=== PATIENT | female | born 1975 | race Caucasian/White ===

== ENCOUNTER → 2018-12-03 | Outpatient (REF) | payer OTHER ==
[2018-12-03 12:25] LABS: BASO % 0.6 % (0.0-1.0); EOS # 0.1 10^3/uL (0.0-0.50); EOS % 2.1 % (0.0-3.0); HEMATOCRIT 37.9 % (36.0-47.0); HEMOGLOBIN 12.8 g/dl (12.0-15.5); LYMPH # 2.1 10^3/uL (1.5-4.5); LYMPH % 39.1 % (24.0-44.0); MEAN CORPUSCULAR HEMOGLOBIN 30.4 pg (27.0-33.0); MEAN CORPUSCULAR HGB CONC 33.8 g/dl (32.0-36.5); MONO # 0.5 10^3/uL (0.0-0.8); MONO % 8.4 % (0.0-5.0); NEUTROPHILS # 2.6 10^3/uL (1.8-7.7); NEUTROPHILS % 49.4 % (36.0-66.0); PLATELET COUNT, AUTOMATED 269 10^3/uL (150-450); RED BLOOD COUNT 4.21 10^6/uL (4.00-5.40); WHITE BLOOD COUNT 5.3 10^3/uL (4.0-10.0)
[2018-12-03 12:38] LABS: ALBUMIN 3.9 GM/DL (3.2-5.2); ALT/SGPT 22 U/L (12-78); BILIRUBIN,TOTAL 0.4 MG/DL (0.2-1.0); BLOOD UREA NITROGEN 7 MG/DL (7-18); CALCIUM LEVEL 9.3 MG/DL (8.5-10.1); CARBON DIOXIDE LEVEL 31 MEQ/L (21-32); CHLORIDE LEVEL 104 MEQ/L (98-107); CHOLESTEROL LEVEL 224 MG/DL (<200); CHOLESTEROL RISK RATIO 3.446 (<5); CREATININE FOR GFR 0.66 MG/DL (0.55-1.30); FREE T4 0.93 NG/DL (0.76-1.46); GLOMERULAR FILTRATION RATE > 60.0 (>58); GLUCOSE, FASTING 69 MG/DL (70-100); HDL CHOLESTEROL 65 MG/DL (>40); LDL CHOLESTEROL 143 MG/DL (<100); NON-HDL-C 159 MG/DL; SODIUM LEVEL 140 MEQ/L (136-145); TOTAL PROTEIN 7.3 GM/DL (6.4-8.2); TRIGLYCERIDES LEVEL 80 MG/DL (<150)
[2018-12-03 12:41] LABS: TOTAL 25(OH) VITAMIN D 24.6 NG/ML (30.0-100.0)
[2018-12-03 13:22] LABS: HEMOGLOBIN A1c 5.7 %
== END ==
LOC: M SFHCPLAZ 10:41
PROVIDERS: ATTEND Nurse Practitioner Family
DX: Z13.228 Encounter for screening for other metabolic disorders (principal); E55.9 Vitamin D deficiency, unspecified

== ENCOUNTER → 2018-12-09 | Outpatient (CLI) | payer OTHER ==
--- NOTE | 2018-12-09 12:43 | REPMRS ---
Patient History The patient states she has not had a clinical breast exam in over a year. No known family history of cancer. 3D TOMOSYNTHESIS WAS PERFORMED. The [facility] lifetime risk for breast cancer is 10.0%. Digital Woman Screen Mammo: December 09, 2018 - Exam #: [id number] Bilateral CC and MLO view(s) were taken. Technologist: Nancy Sawyer, Technologist FINDINGS: The breast tissue is extremely dense which could obscure a lesion on mammography. There is no evidence of cancer on this mammogram. No significant changes when compared with prior studies. Assessment: BI-RADS/ACR category 2 mammogram. Benign Findings. Recommendation Routine screening mammogram of both breasts in 1 year (for women over age 40). This mammogram was interpreted with the aid of an FDA-approved computer-aided dectection system. Electronically Signed By: Ross Gama MD 12/09/18 [id number]
== END ==
LOC: M WHC 10:05
PROVIDERS: ATTEND Nurse Practitioner Family
DX: Z12.31 Encounter for screening mammogram for malignant neoplasm of breast (principal)

== ENCOUNTER → 2018-12-13 | Outpatient (CLI) | payer OTHER ==
--- NOTE | 2018-12-13 14:24 | REP ---
Clinical: Venous insufficiency. Technique: Real time leung scale and color Doppler evaluation using linear high frequency transducer with reflux evaluation. Findings: Ultrasound examination of the left lower extremity deep venous structures from the common femoral vein to the popliteal vein demonstrates normal compressibility, flow, wave patterns in response to respiration and augmentation. There is no evidence for deep venous thrombosis. Reflux evaluation demonstrates no evidence for reflux. Impression: 1. No evidence for deep venous thrombosis. 2. No evidence for reflux disease. Electronically Signed by Reji Horner MD 12/13/2018 02:15 P
== END ==
LOC: M RAD 13:11
PROVIDERS: ATTEND Nurse Practitioner Family
DX: Z86.79 Personal history of other diseases of the circulatory system (principal)

== ENCOUNTER → 2020-03-02 | Outpatient (CLI) | payer OTHER ==
[2020-03-02 16:30] LABS: ALBUMIN 3.8 GM/DL (3.2-5.2); ALT/SGPT 24 U/L (12-78); BILIRUBIN,TOTAL 0.5 MG/DL (0.2-1.0); BLOOD UREA NITROGEN 10 MG/DL (7-18); CALCIUM LEVEL 9.1 MG/DL (8.5-10.1); CARBON DIOXIDE LEVEL 29 MEQ/L (21-32); CHLORIDE LEVEL 106 MEQ/L (98-107); CHOLESTEROL LEVEL 246 MG/DL (<200); CHOLESTEROL RISK RATIO 3.843 (<5); CREATININE FOR GFR 0.89 MG/DL (0.55-1.30); GLOMERULAR FILTRATION RATE > 60.0 (>58); GLUCOSE, FASTING 83 MG/DL (70-100); HDL CHOLESTEROL 64 MG/DL (>40); LDL CHOLESTEROL 154 MG/DL (<100); NON-HDL-C 182 MG/DL; POTASSIUM SERUM 4.1 MEQ/L (3.5-5.1); SODIUM LEVEL 140 MEQ/L (136-145); TOTAL PROTEIN 7.4 GM/DL (6.4-8.2); TRIGLYCERIDES LEVEL 140 MG/DL (<150)
[2020-03-02 16:32] LABS: TOTAL 25(OH) VITAMIN D 22.8 NG/ML (30.0-100.0)
[2020-03-02 20:14] LABS: HEMOGLOBIN A1c 5.6 %
== END ==
LOC: M PLALAB 12:33
PROVIDERS: ATTEND Nurse Practitioner Family
DX: R73.09 Other abnormal glucose (principal); E55.9 Vitamin D deficiency, unspecified; E78.5 Hyperlipidemia, unspecified

== ENCOUNTER → 2020-03-02 | Outpatient (CLI) | payer OTHER ==
--- NOTE | 2020-03-02 13:19 | REPMRS ---
Patient History The patient states she has not had a clinical breast exam in over a year. No known family history of cancer. No Hormone Replacement Therapy 3D TOMOSYNTHESIS WAS PERFORMED. The Patrizia Nguyen lifetime risk for breast cancer is 9.9%. MARC Adrian. Digital Woman Screen Mammo: March 02, 2020 - Exam #: [id number] Bilateral CC and MLO view(s) were taken. Technologist: Maria R Barker, Technologist Prior study comparison: December 09, 2018, bilateral digital woman screen mammo performed at [facility]. October 23, 2016, bilateral digital mammo screening bilat, performed at [facility]. FINDINGS: The breast tissue is extremely dense which could obscure a lesion on mammography. There has been no change in the appearance of the mammogram from the prior studies. There is a moderate amount of residual fibroglandular tissue which is fairly symmetric. There is no interval development of dominant mass, areas of architectural distortion, or clustered microcalcification typical of malignancy. No significant changes when compared with prior studies. Assessment: BI-RADS/ACR category 1 mammogram. Negative Mammogram. Recommendation Routine screening mammogram in 1 year (for women over age 40). This mammogram was interpreted with the aid of an FDA-approved computer-aided dectection system. Electronically Signed By: Ross Gama MD 03/02/20 [id number]
== END ==
LOC: M WHC 12:01
PROVIDERS: ATTEND Nurse Practitioner Family
DX: Z12.31 Encounter for screening mammogram for malignant neoplasm of breast (principal)

== ENCOUNTER 2020-11-16 12:15 | Emergency (ER) | payer OTHER ==
[~2020-11-16] VITALS: Ht 165.1 cm; Wt 66.8 kg
[2020-11-16 12:55] LABS: BASO % 0.4 % (0.0-1.0); EOS # 0.1 10^3/uL (0.0-0.5); EOS % 2.5 % (0.0-3.0); HEMATOCRIT 37.3 % (36.0-47.0); HEMOGLOBIN 12.4 g/dl (12.0-15.5); LYMPH # 0.7 10^3/uL (1.5-5.0); LYMPH % 15.1 % (24.0-44.0); MEAN CORPUSCULAR HEMOGLOBIN 29.6 pg (27.0-33.0); MEAN CORPUSCULAR HGB CONC 33.2 g/dl (32.0-36.5); MONO # 0.5 10^3/uL (0.0-0.8); MONO % 9.8 % (2.0-8.0); NEUTROPHILS # 3.5 10^3/uL (1.5-8.5); PLATELET COUNT, AUTOMATED 205 10^3/uL (150-450); RED BLOOD COUNT 4.19 10^6/uL (4.00-5.40); WHITE BLOOD COUNT 4.9 10^3/uL (4.0-10.0)
[2020-11-16 13:25] LABS: ALBUMIN 3.8 GM/DL (3.2-5.2); ALT/SGPT 26 U/L (12-78); BILIRUBIN,DIRECT 0.1 MG/DL (0.0-0.2); BILIRUBIN,TOTAL 0.5 MG/DL (0.2-1.0); BLOOD UREA NITROGEN 7 MG/DL (7-18); CALCIUM LEVEL 9.2 MG/DL (8.5-10.1); CARBON DIOXIDE LEVEL 29 MEQ/L (21-32); CHLORIDE LEVEL 105 MEQ/L (98-107); CREATININE FOR GFR 0.55 MG/DL (0.55-1.30); GLOMERULAR FILTRATION RATE > 60.0 (>58); GLUCOSE, FASTING 105 MG/DL (70-100); LIPASE 83 U/L (73-393); POTASSIUM SERUM 3.9 MEQ/L (3.5-5.1); SODIUM LEVEL 138 MEQ/L (136-145); TOTAL PROTEIN 7.2 GM/DL (6.4-8.2)
[2020-11-16] MEDS ORDERED: KETOROLAC 30 MG/ML 1ML VIAL IV ONE (16:00)
[2020-11-16] MEDS ORDERED: NS 1,000 ML IV ONE (16:00)
[2020-11-16] MEDS ORDERED: ISOVUE-370 76% 100ML VIAL As Ordered ONE (16:07)
--- NOTE | 2020-11-16 17:10 | REP ---
INDICATION: rlq pain. COMPARISON: None. TECHNIQUE: Helical scanning was acquired and 4 mm axial images are re-formatted. Coronal and sagittal MPR images were generated and reviewed. The contrast enhancement dose is 100 mL of intravenous Isovue 370. FINDINGS: Digital preliminary tattooer radiograph is unremarkable. Normal bowel gas pattern. The lung bases are clear on axial CT images. No pleural effusion or upper abdominal ascites. There is a small cyst in the anterosuperior margin of the spleen. Spleen is normal in size and otherwise homogeneous in texture. The liver contains a small left lobe cyst peripherally under a cm in diameter. There is mild diffuse fatty infiltration of the liver. No adrenal lesion is seen. No abnormality is noted in the gallbladder or the pancreas. There is a small accessory splenule inferiorly to the spleen. No retroperitoneal mass or adenopathy is seen. A normal appendix is seen in the right lower quadrant. No Rebecca appendiceal inflammatory changes. No uterine or left ovarian abnormality. There is multi cystic enlargement of the right ovary. Overall dimensions of the right ovary are 8.0 x 3.4 x 5.7 cm. No free fluid is seen. No evidence of abscess or free air. Small and large intestinal bowel loops are unremarkable. No abdominal wall defect is seen. No bony destructive lesion seen. IMPRESSION: Normal appendix seen in the right lower quadrant. Multi cystic enlargement of the right ovary. Differential possibilities include benign and malignant cystic lesions, and ovarian torsion. There is no evidence of free cul-de-sac fluid. Otherwise no acute abdominal or pelvic abnormality. <Electronically signed by Manuel Santacruz > 11/16/20 [id number]
--- NOTE | 2020-11-16 18:39 | REP ---
INDICATION: cysytic right ovary/pain ro torsion COMPARISON: None. TECHNIQUE: Transabdominal pelvic ultrasound. FINDINGS: Bladder is unremarkable and measures 10.8 x 9.9 x 4.1 cm. Normal anteverted uterus measures 7.9 x 4.6 x 5.0 cm. The endometrial complex measures 14 mm thickness. No discrete uterine or endometrial abnormalities are appreciated. Right ovary measures 4.3 x 2.8 x 3.6 cm and a complex right adnexal cystic structure measures 4.1 x 5.0 x 4.1 cm. Left ovary is not visualized. Vascularity to the right ovary and the complex structure cannot definitively be identified. No pelvic fluid. IMPRESSION: Complex cystic appearance to the right ovary and adjacent complex cystic structure possibly ovarian. Differential diagnosis cannot exclude torsion. Repeat pelvic ultrasound including transvaginal examination and close clinical observation are warranted. <Electronically signed by Reji Horner > 11/16/20 [id number]
[2020-11-16] MEDS ORDERED: KETO10TAB PO (19:41)
[2020-11-16 19:51] VITALS: BP 116/66
--- NOTE | 2020-11-17 09:47 | ED PDOC ---
Post-Departure Follow-Up radiology report faxed to Risa Traylor MD November 17, 2020 09:47
== END 2020-11-16 19:53 | disposition home or self-care (01) ==
LOC: M ED 12:15
DX: N83.201 Unspecified ovarian cyst, right side (principal)
CPT/HCPCS: 74177; 76856; 80048; 80076; 81001; 83690; 84702; 85025; 96374; 99284; J1885; Q9967